=== PATIENT | female | born 1945 | race Caucasian/White ===

== ENCOUNTER 2017-11-13 12:54 | Emergency (ER) | payer OTHER ==
[~2017-11-13] VITALS: Ht 170.2 cm; Wt 88.8 kg
[~2017-11-13 12:54] MED LIST: ASPIR-TRIN325 M1 PO; CALCIUM CARBON600 M1 PO; CELEBREX200 MG PO; FEOSOL325 MG PO; Flexeril PO; Folvite PO; K-DUR10 ME2 PO; Lasix PO; Levothroid,Synthroid PO; METAMUCIL CAPSU1 CAP PO; PRAVACHOL40 MG PO; PYRIDIUM100 MG PO; Prevacid PO; SENOKOT S,PE1 TABLET PO; Tenormin PO; VITAMIN D1000 INTUN PO; Vicodin,Lortab 5/500 PO; predniSONE PO
[2017-11-13 15:39] LABS: HEMATOCRIT 36.3 % (36.0-46.0); HEMOGLOBIN 12.4 G/DL (11.9-15.5); MCH 32.3 PG (29.0-34.0); MCHC 34.2 G/DL (30.0-36.0); MCV 94.5 FL (83-99); PLATELET COUNT 153 K/uL (156-360); RBC DIS.WIDTH-CV 13.9 % (11.8-14.6); RBC DIS.WIDTH-SD 47.9 % (39-53); RED BLOOD COUNT 3.84 M/uL (3.80-5.20); WHITE BLOOD COUNT 7.2 K/uL (4.1-10.2)
[2017-11-13 15:55] LABS: ALBUMIN 4.3 g/dL (3.2-4.8); CHLORIDE 107 mEq/L (99-109); POTASSIUM 4.2 mEq/L (3.7-5.4); SODIUM 141 mEq/L (136-147)
[2017-11-13 15:57] LABS: GLUCOSE 91 mg/dL (70-99); TOTAL PROTEIN 7.6 g/dL (6.4-8.3)
[2017-11-13 15:59] LABS: TOTAL BILIRUBIN 0.4 mg/dL (0.0-1.0)
[2017-11-13 16:01] LABS: ALKALINE PHOSPHATASE 58 IU/L (3-129); CREATININE 1.2 mg/dL (0.6-1.3); GFR ESTIMATE (CALCULATED) 47 mL/min/
[2017-11-13 16:02] LABS: TROP-I INTERPRETATION NEGATIVE; TROPONIN-I < 0.01 ng/mL (0.0-0.30); UREA NITROGEN (BUN) 25 mg/dL (9-23)
[2017-11-13 16:03] LABS: AST (GOT) 22 IU/L (2-34)
[2017-11-13 16:04] LABS: ALT (GPT) 15 IU/L (3-49)
[2017-11-13 17:13] LABS: THYROTROPIN (TSH) 0.28 MIU/L (0.4-5.5)
[2017-11-13 20:23] VITALS: BP 179/60
== END 2017-11-13 20:26 | disposition home or self-care (01) ==
LOC: EME 12:54
PROVIDERS: Emergency Medicine
DX: R55 Syncope and collapse (principal); J84.10 Pulmonary fibrosis, unspecified; M06.9 Rheumatoid arthritis, unspecified; I10 Essential (primary) hypertension; E78.5 Hyperlipidemia, unspecified; K21.9 Gastro-esophageal reflux disease without esophagitis; Z79.82 Long term (current) use of aspirin; Z88.0 Allergy status to penicillin; Z88.4 Allergy status to anesthetic agent
CPT/HCPCS: 71046; 80053; 82948; 84439 GA; 84443; 84484; 85027; 93005; 99281; 99285